=== PATIENT | female | born 1990 | race Caucasian/White ===

== ENCOUNTER → 2023-06-23 10:29 | Outpatient (BNVA) | payer BC, SELFPAY | PROVIDERS: Visit Provider Registered Nurse | DX: L40.9 Psoriasis, unspecified (principal); R73.03 Prediabetes; E53.8 Deficiency of other specified B group vitamins | CPT/HCPCS: 80053; 82607; 83036; 84443; 85025 ==

== ENCOUNTER → 2023-07-06 10:08 | Outpatient (BNVA) | payer BC, SELFPAY | PROVIDERS: Visit Provider Nurse Practitioner Family | DX: L40.9 Psoriasis, unspecified (principal); E53.8 Deficiency of other specified B group vitamins; R73.03 Prediabetes | CPT/HCPCS: 36415; 80053; 85025; 86480; 86705; 86706; 86709; 86803; 87340 ==

== ENCOUNTER → 2023-07-15 09:00 | Outpatient (BNVA) | payer BC, SELFPAY | PROVIDERS: Visit Provider Nurse Practitioner Women's Health | DX: Z12.4 Encounter for screening for malignant neoplasm of cervix (principal); N92.1 Excessive and frequent menstruation with irregular cycle | CPT/HCPCS: 84146; 87624 ==

== ENCOUNTER → 2023-08-05 08:20 | Outpatient (BNVA) | payer BC, SELFPAY | PROVIDERS: PCP Registered Nurse; Visit Provider Nurse Practitioner Women's Health | DX: N92.6 Irregular menstruation, unspecified (principal) | CPT/HCPCS: 76830 ==

== ENCOUNTER → 2023-08-18 07:52 | Outpatient (BNVA) | payer BC, SELFPAY | PROVIDERS: PCP Registered Nurse; Referring Provider Registered Nurse; Visit Provider Physician Assistant | DX: M67.431 Ganglion, right wrist (principal) | CPT/HCPCS: 73110 ==

== ENCOUNTER 2023-10-21 11:07 | Day surgery (SDC) | payer BC, SELFPAY ==
[2023-10-21] VITALS (9 sets, daily range): BP systolic 110–153; BP diastolic 66–95; PULSE 61–80; RESP 16–20; TEMP 36.1–36.6; O2SAT 96–100; BMI 35.7
[2023-10-21 11:44] LABS: OR HCG Qualitative Urine Negative (Negative)
--- NOTE | 2023-10-21 11:53 | W.PM.OPSFHP ---
Same Day Surgery H&P Indication for Procedure/HPI DATE OF PROCEDURE: October 21, 2023 CHIEF COMPLAINT/INDICATIONFOR SURGICAL PROCEDURE: Right volar wrist ganglion cyst PREOP DIAGNOSIS: Right wrist volar ganglion cyst PLANNED PROCEDURE: Operation Date: 10/21/23 12:55 Proposed Procedures p Volar wrist ganglion cyst excision(Right) - Germán Khan DO Medications/Allergies* Home Medications Medication Instructions Recorded Confirmed Type Saccharomyces boulardii 250 mg 250 mg PO BID 06/23/23 10/20/23 History capsule (Daily Probiotic (S. 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; one removed Depression Psoriasis Surgical History (Updated 07/15/23 @ 09:47 by Carmen Souza APN, VERONICA) Status post hysteroscopic polypectomy 2 different surgeries performed in [place] at [place]; polyps noted and benign History of kidney removal (~1989) duplicate kidney History of ureterostomy H/O tubal ligation (~07/2020) Family History (Updated 07/15/23 @ 09:24 by Elida Carr LPN) Alcohol dependence Father Diabetes mellitus, type 2 Father Congestive heart failure (CHF) Father Heart disease Father Hyperlipidemia Father Breast cancer Grandmother maternal Kidney failure Father Lung cancer Grandfather paternal Hypertension Mother Denies family history of Ovarian cancer Prostate cancer Uterine cancer Thyroid disease Stroke Social History Smoking and tobacco/nicotine status: never used tobacco/nicotine Pertinent Exam Findings alert, oriented x 3, operative site marked and procedure specific exam findings Please refer to detailed orthopedic examination on 08/18/2023 detailed below: Right wrist-negative Phalen's and negative Tinel's test. Patient has palpable tender nodule that is soft and mobile on the volar aspect of wrist. Exam findings suggestive of ganglion cyst. No signs of any abscess or infection noted. She has full range of motion in wrist with some mild pain with some range of motion. 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 Patient understands the ins and outs of procedure the risk benefits complication alternatives with surgery and through shared decision making lacks proceed with surgical intervention. All questions answered at this time. Coding Level of Care Code Acute Code for [facility]
[2023-10-21] MEDS: sodium chloride 0.9% 1,000 ML 30 ML IV (12:19)
[2023-10-21] MEDS: scopolamine 1.5 Patch 1 PATCH TRANSDERMA (12:20)
[2023-10-21] MEDS: ketorolac 30 mg/mL INJ IVP (12:20)
[2023-10-21] MEDS: acetaminophen 1,000 MG/100 ML PIGGYBACK 400 MG IV (12:28)
--- NOTE | 2023-10-21 12:33 | ANES.PREANE2 ---
Pre-Anesthetic Assessment Height/Weight: Height 1.65 m Weight 97.522 kg Temp Pulse Resp BP Pulse Ox O2 Del Method 97.9 F 70 16 128/84 97 Room Air 10/21/23 11:33 10/21/23 11:33 10/21/23 11:33 10/21/23 11:33 10/21/23 11:33 10/21/23 11:53 Preop Diagnosis: Right wrist volar ganglion cyst Operation Date: 10/21/23 12:55 Proposed Procedures p Volar wrist ganglion cyst excision(Right) - Germán Khan DO Familial anesthetic complications: None Was Beta Kyrie taken within 24 hours: N/A Was Clonidine taken within 24 hours: N/A Last intake: Intake Last Liquid Date 10/20/23 Last Liquid Time 21:00 Last Solid Date 10/20/23 Last Solid Time 19:00 Social No alcohol and No tobacco Exam alert, oriented x 3, clear to auscultation bilaterally and regular rate & rhythm Airway Mallampati: Class II Dentition: full Metabolic Morbid Obesity Anesthetic Plan ASA status: 2 Anesthesia: MAC Risk of > 500 ml blood loss (7ml/kg in children): No Medications/Allergies Home Medications Medication Instructions Recorded Confirmed Last Taken Type Saccharomyces boulardii 250 mg 250 mg PO BID 06/23/23 10/20/23 10/21/23 History capsule (Daily Probiotic (S. boulardii)) desoximetasone 0.05 % topical 1 applic topical BID PRN skin 06/23/23 10/20/23 10/17/23 Rx ointment irritation #60 grams ibuprofen 800 mg tablet 800 mg PO Q8H 5 days #15 tabs 07/27/23 10/20/23 09/29/23 Rx ustekinumab 45 mg/0.5 mL See Rx Instructions .Route .COMPLEX 10/20/23 10/20/23 09/17/23 History subcutaneous syringe (Stelara) hydrocodone 5 mg-acetaminophen 325 1 tab PO Q6H PRN pain 5 days #20 10/21/23 Unknown Rx mg tablet tabs ondansetron 4 mg disintegrating 4 mg PO Q8H PRN nausea and 10/21/23 Unknown Rx tablet vomiting 3 days #9 tabs Allergies Allergy/AdvReac Type Severity Reaction Status Date / Time tramadol Allergy Intermediate ADR-Halluci Verified 09/11/23 11:34 nating Current Medications Generic Name Dose Route Start Last Admin Trade Name Freq PRN Reason Stop Dose Admin Sodium Chloride 1,000 mls @ 30 mls/hr 10/21/23 11:30 10/21/23 12:19 Sodium Chloride 0.9% IV 10/22/23 11:29 30 mls/hr .Q24H URBANO Administration PFSH Anesthesia Medical History ADHD No pertinent past medical history neghx: htn,dm,thryoid,dvt/pe PCP: Chava Puente 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; one removed Depression Psoriasis Surgical History Status post hysteroscopic polypectomy 2 different surgeries performed in [place] at [place]; polyps noted and benign History of kidney removal (~1989) duplicate kidney History of ureterostomy H/O tubal ligation (~07/2020) Family History Grandmother Breast cancer maternal Grandfather Lung cancer paternal Father Diabetes mellitus, type 2 Congestive heart failure (CHF) Alcohol dependence Kidney failure Heart disease Hyperlipidemia Mother Hypertension Denies family history of Ovarian cancer Prostate cancer Uterine cancer Thyroid disease Stroke Social History Smoking and tobacco/nicotine status: never used tobacco/nicotine Female Reproductive History Date of last menstrual period: 09/26/23 Data Anesthesia Cardiac Studies: No Data to Display
[2023-10-21] MEDS: ceFAZolin 2,000 MG in sodium chloride 0.9% (plus) 50 ML 100 MG IV (12:40)
[2023-10-21] MEDS: lidocaine 2% INJ 20 mL INJECTION (13:08)
[2023-10-21] MEDS: ROPivacaine 0.5% SDV 30 mL 25 MG INJECTION (13:08)
--- NOTE | 2023-10-21 13:45 | P.BOP_ITS ---
Date of Procedure: [10/21/2023] Surgeon: Germán Khan DO Psychologist Industrial Organizational(s): None Procedure(s) performed: Right volar wrist ganglion cyst excision Findings of the procedure(s): Patient found to have right volar wrist ganglion cyst underwent excision without issues or complications patient volar splint taken packings able condition Estimated blood loss: 5 mL Specimen(s) removed: Right volar wrist ganglion cyst excised and sent for pathology Post-operative diagnosis: [Right volar wrist ganglion cyst]
--- NOTE | 2023-10-21 13:48 | P.OP_ITS ---
Operative Report Date of procedure: October 21, 2023 Surgeon: Germán Khan DO Procedure: Preoperative diagnosis: Right?volar?wrist ganglion?cyst Postoperative diagnosis: Same Procedure Right?volar?wrist ganglion?cyst?excision Specimens removed/disposition: Right?volar?wrist ganglion?cyst?excised and sent for pathology Surgeon: Germán Khan DO Estimated blood loss: 5mL Tourniquet time 25 minutes IV fluids: See anesthesia record Complications: None Findings: See operative report narrative Condition: stable Disposition: same day Brief History: Patient's been worked up in the outpatient setting and findings consistent with preoperative diagnosis.? Patient has a Right?volar?wrist ganglion?cyst.? Patient has attempted conservative treatment and this has become significantly painful.? ?We talked about treatment options as far as nonoperative and operative intervention.? At this point time patient like a more permanent solution in the lowest chance of recurrence and as result through shared decision making we agreed to proceed with a Right?volar?wrist ganglion?cyst?excision.? Patient understands risk benefits complication alternatives surgical nonsurgical treatment options.? Understanding risk of surgery patient agrees to proceed.? All questions answered.? Consent obtained in the office. Procedure: Patient seen evaluate in the preoperative holding area.? Consent was signed and reviewed with patient.? All questions were answered at that time.? Correct extremity was then marked.? Once seen evaluated by anesthesia patient was then brought back to the operative suite.? Patient was then placed in supine position all bony prominences well-padded patient was properly secured to the bed.? An armboard was then applied for the Right upper extremity.? A nonsterile tourn iquet was applied to the Right upper extremity arm.? Patient then underwent anesthesia per the anesthesia department.? Once appropriately anesthetized the Right upper extremity was then prepped and draped in standard orthopedic fashion.? Final timeout performed.? Patient received appropriate preoperative antibiotics. Under sterile aseptic technique I began with local anesthetic for my preplanned surgical site.? Then I utilized an Esmarch tourniquet to exsanguinate the Right upper extremity to 250 mmHg Patient had a large soft mobile ganglion?cyst?which a incision was then centered directly over the?cyst?over the?volar?aspect of the Right wrist, this was made in standard [place] fashion. sharp scalpel incision was made through skin.? I then switched to dissection scissors and spread longitudinally to identify cutaneous nerve branches as well as identifying protecting radial artery. These were protected throughout the case.? Just radial to the radial artery was the ganglion cyst adhered up against the bifurcation of the distal extent of the radial artery. I performed slow careful dissection utilizing loupe magnification to dissect the radial artery off of the ganglion cyst once this was performed my speech language pathologist assistant then protected the artery throughout the rest of the case while I dissected out the ganglion cyst. I then dissected circumferentially all the way to the base which was connected to the?volar?capsule.? This was then transected at the base with bipolar electrocautery.? I did have to excise some of the?volar?capsule that communicated with the?cyst?this had a broad connection and?cyst?stalk to the?volar?capsule. I utilized bipolar electrocautery to to seal off the?volar?capsule and prevent any further?cyst?recurrence.??Cyst?was then sent for pathology.? I then thoroughly irrigated the wound bed tourniquet was deflated.? Hemostasis was satisfactory with bipolar electrocautery.? I then closed the incision with stitch for skin.? Xeroform over the incisions 4 x 4's ABD soft roll and a?volar?splint was applied.? Patient was then awakened from anesthesia and taken back in stable condition. Disposition: Patient taken back in stable condition recovering well.? Patient will receive appropriate discharge instructions as well as pain medication postoperatively.? Patient placed in a?volar?splint.? We will follow-up with in the orthopedic office in 2 weeks.? Patient understands of any questions or concerns and contact the office.
[2023-10-21] MEDS: HYDROcodone-acetaminophen 5-325 mg Tablet 1 TAB PO (14:40)
--- NOTE | 2023-10-21 14:47 | SUR.PHASEII ---
ROM, SENSATION, AND GOOD CAP REFILL, FINGERS OF RIGHT HAND.
--- NOTE | 2023-10-21 16:00 | ANE.PACU2 ---
Inpatient post-anesthesia follow up: Airway intact: Yes Vital signs: Temperature 97.9 F Pulse Rate 62 Respiratory Rate 16 Blood Pressure 136/95 Pulse Oximetry 99 Oxygen Delivery Me thod Room Air Oxygen Flow Rate Fraction of Inspir ed Oxygen Hydration adequate: Yes Nausea and vomiting: No Pain level: 1 Mental status: Baseline
== END 2023-10-21 16:00 | disposition home or self-care (01) ==
PROVIDERS: Anesthesiology; PCP Registered Nurse; Visit Provider Student in an Organized Health Care Education/Training Program
PROC: (CPT 25111; principal; 2023-10-21 12:55)
DX: M67.431 Ganglion, right wrist (principal); F32.A Depression, unspecified; E66.01 Morbid (severe) obesity due to excess calories; Z68.35 Body mass index [BMI] 35.0-35.9, adult
CPT/HCPCS: 25111; 81025; 88304; J0131; J0690; J1100; J1885; J2250; J2405; J2704; J2795; J3010; J7030

== ENCOUNTER 2024-01-21 13:11 | Outpatient (CLI) | payer BC, SELFPAY ==
--- NOTE | 2024-01-21 14:30 | MR_ITS ---
WS: [id number] MRI PELVIS WITH AND WITHOUT CONTRAST. COMPARISON: Transvaginal pelvic ultrasound 08/05/2023 Multiplanar, multisequence imaging is performed with and without contrast. MultiHance 20 mL IV. Uterus is midline and measures 9.2 cm in length x 5.1 cm anterior posterior x 6.5 cm transversely. No fibroid or mass is identified. Endocervical canal is normal. Normal endometrium at 1.1 cm. No fibroi ds or abnormal masses identified. No bicornuate uterus or duplicated cervix. There are a few subendom etrial, tiny T2 bright lesions measuring 3 to 4 mm. Most likely due to subendometrial glands or devel oping adenomyosis. RIGHT ovary is identified in the RIGHT adnexa measuring 2.7 x 1.5 x 3.1 cm. There are small follicles present. Normal appearance of the fallopian tube and the round ligament. LEFT ovary is not identified and may have been surgically removed. Cervix is normal. The urinary bladder is well distended on this examination. No ureteral enlargement is identified. The ureteral orifices are not definitely identified on this exam. Delayed postcontrast imaging was perfo rmed in order to better evaluate contrast-filled ureters but this was unsuccessful. Symmetric appearance of the bones. No marrow edema. No ascites. MR/MR pelvis wo/w con [id number] IMPRESSION: 1. Normal appearance of the uterus. No anomalies are detected. 2. Normal RIGHT ovary. LEFT ovary is not identified and may have been surgical ly removed. 3. The distal ureters are not identified on this MRI of the pelvis. Delayed po st contrast imaging was attempted but the ureters did not distend with contrast . The ureters do not appear dilated and the bladder was normal. To better evalu ate the insertion sites of the ureters to the bladder CT abdomen and pelvis wit h IV contrast and delayed imaging can be obtained.
== END 2024-01-21 13:12 | disposition home or self-care (01) ==
LOC: RAD 13:11
PROVIDERS: PCP Registered Nurse; Visit Provider Obstetrics & Gynecology
DX: Q62.5 Duplication of ureter (principal)
CPT/HCPCS: 72197

== ENCOUNTER 2024-02-09 09:10 | Observation (INO) | payer BC, SELFPAY ==
--- NOTE | 2024-02-01 10:13 | P.ANESASSM_ITS ---
Pre-Anesthetic Assessment Height/Weight: Height 1.65 m Operation Date: 02/09/24 07:00 Proposed Procedures p Total Vaginal Hysterectomy 19162, N92.0(Not Applicable) - Wilberto Farnsworth MD Familial anesthetic complications: None Social No alcohol and No tobacco Vapes Exam alert, oriented x 3, clear to auscultation bilaterally and regular rate & rhythm Airway Mallampati: Class II Dentition: partials ( loose, but still hanging on ) Metabolic Morbid Obesity Neuropsych adhd Anesthetic Plan ASA status: 2 Anesthesia: General Risk of > 500 ml blood loss (7ml/kg in children): No Medications/Allergies Home Medications Medication Instructions Recorded Confirmed Last Taken Type Saccharomyces boulardii 250 mg 250 mg PO DAILY 06/23/23 02/01/24 02/01/24 History capsule (Daily Probiotic (S. boulardii)) desoximetasone 0.05 % topical 1 applic topical BID PRN skin 06/23/23 02/01/24 01/30/24 Rx ointment irritation #60 grams ibuprofen 800 mg tablet 800 mg PO Q8H 5 days #15 tabs 07/27/23 02/01/24 02/01/24 Rx ustekinumab 45 mg/0.5 mL See Rx Instructions .Route .COMPLEX 10/20/23 02/01/24 12/19/23 History subcutaneous syringe (Stelara) prednisone 20 mg tablet 20 mg PO BID 7 days #14 tabs 01/22/24 02/01/24 02/01/24 Rx clobetasol 0.05 % lotion 1 applic topical BID 02/01/24 02/01/24 01/31/24 History tretinoin 0.1 % topical cream 1 applic topical Q2D 02/01/24 02/01/24 02/01/24 History Allergies Allergy/AdvReac Type Severity Reaction Status Date / Time tramadol Allergy Intermediate ADR-Halluci Verified 02/01/24 09:30 sherif [facility] Anesthesia Medical History ADHD No pertinent past medical history neghx: htn,dm,thryoid,dvt/pe PCP: Chava Puente 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; one removed Depression Psoriasis Surgical History Status post hysteroscopic polypectomy 2 different surgeries performed in [place] at [place]; polyps noted and benign History of kidney removal (~1989) duplicate kidney History of ureterostomy H/O tubal ligation (~07/2020) Family History Grandmother Breast cancer maternal Grandfather Lung cancer paternal Father Diabetes mellitus, type 2 Congestive heart failure (CHF) Alcohol dependence Kidney failure Heart disease Hyperlipidemia Mother Hypertension Denies family history of Ovarian cancer Prostate cancer Uterine cancer Thyroid disease Stroke Social History Smoking and tobacco/nicotine status: never used tobacco/nicotine Female Reproductive History Date of last menstrual period: 02/01/24 Data Anesthesia Cardiac Studies: No Data to Display
[2024-02-09] VITALS (23 sets, daily range): BP systolic 98–158; BP diastolic 50–88; PULSE 66–97; RESP 14–20; TEMP 36.2–36.9; O2SAT 92–99; BMI 36.6
[2024-02-09 06:16] LABS: OR HCG Qualitative Urine Negative (Negative)
--- NOTE | 2024-02-09 06:24 | P.ANESUD_ITS ---
Pre-Anesthetic Update Pre-Anesthetic Assessment: Date of Surgery/Procedure: 02/09/24 Preop Carrol gnosis: abnormal uterine bleeding, Proposed Procedure: Operation Date: 02/09/24 07:00 Proposed Procedures p Total Vaginal Hysterectomy 42170, N92.0(Not Applicable) - Wilberto Farnsworth MD Any changes to Pre-Anesthetic Assessment?: No Last Intake: Intake Last Liquid Date 02/08/24 Last Liquid Time 21:00 Last Solid Date 02/08/24 Last Solid Time 19:00 Vitals: Temperature 97.3 F L 02/09/24 06:10 Temperature Source Temporal Artery S can 02/09/24 06:10 Pulse Rate 70 02/09/24 06:10 Respiratory Rate 18 02/09/24 06:10 Blood Pressure 134/82 02/09/24 06:10 Blood Pressure Elizabeth n 99 02/09/24 06:10 Pulse Oximetry 96 02/09/24 06:10 Oxygen Delivery Me thod Room Air 02/09/24 06:12 Exam: Pre-Anes Outpt Exam: alert, oriented x 3, clear to auscultation bilaterally and regular rate & rhythm Cardiac Studies: No Data to Display
[2024-02-09] MEDS: metroNIDAZOLE IV 500 MG/100 ML PREMIX 100 MG IV (06:38)
[2024-02-09] MEDS: sodium chloride 0.9% 500 ML IV (06:38)
[2024-02-09] MEDS: sodium chloride 0.9% 1,000 ML 30 ML IV (06:43)
[2024-02-09] MEDS: scopolamine 1.5 Patch 1 PATCH TRANSDERMA (06:46)
[2024-02-09 06:52] LABS: Basophils # 0.1 10^3/uL (0.0-0.1); Basophils % 0.8 %; Eosinophils # 0.2 10^3/uL (0.0-0.8); Eosinophils % 2.7 %; Hematocrit 37.2 % (36-47); Lymphocytes # 1.8 10^3/uL (0.8-4.8); Lymphocytes % 23.4 %; Mean Corpuscular HGB Conc 35.5 g/dL (30-55); Mean Corpuscular Hemoglobin 28.4 pg (27-33); Mean Platelet Volume 10.8 fL (7.4-10.4); Monocytes # 0.6 10^3/uL (0.2-0.9); Nucleated Red Blood Cells % 0 %; Platelet Count 268 10^3/cmm (157-399); Red Blood Count 4.65 10^6/uL (3.85-5.65); Red Cell Distribution Width 13.5 % (12.1-15.1); White Blood Count 7.87 10^3/uL (3.29-11.43)
--- NOTE | 2024-02-09 06:55 | W.PM.OPSUD ---
Surgery/Procedure H&P Update DATE OF PROCEDURE: February 09, 2024 DATE H&P PERFORMED: 02/01/24 H&P UPDATE INFORMATION: I have reviewed H&P completed within last 30 days, I have examined patient prior to procedure and No changes to prior documentation PREOP DIAGNOSIS: abnormal uterine bleeding, PLANNED PROCEDURE: Operation Date: 02/09/24 07:00 Proposed Procedures p Total Vaginal Hysterectomy 44752, N92.0(Not Applicable) - Wilberto Farnsworth MD
[2024-02-09 07:01] LABS: Bilirubin Urine Negative (Negative); Blood Urine Negative (Negative); Glucose Urine UA Negative (Normal); Ketones Urine Negative (Negative); Leukocyte Esterase Urine Negative (Negative); Nitrate Urine Negative (Negative); Protein Urine Negative (Negative); Specific Gravity, Urine 1.023 (1.005-1.030); Urine Appearance Clear (CLEAR); Urine Color Yellow (Yellow)
[2024-02-09 07:02] LABS: Alanine Aminotransferase 18 U/L (0-33); Albumin Level 4.3 g/dL (3.5-5.2); Alkaline Phosphatase 56 U/L (35-105); Aspartate Amino Transferase 17 U/L (0-32); Blood Urea Nitrogen 11 mg/dL (6-20); Calcium 8.9 mg/dL (8.5-10.5); Carbon Dioxide 22 mmol/L (22-29); Chloride 104 mmol/L (98-107); Creatinine Clr Calc Pharmacy 131.2471; Globulin 2.5 g/dL (1.3-4.6); Glomerular Filtration Rate 95.2 mL/min (90-130); Glucose 116 mg/dL (65-115); Osmolality Calculated 284 mOsm/kg (285-295); Sodium 137 mmol/L (136-145); Total Bilirubin 0.4 mg/dL (0.15-1.2); Total Protein 6.8 g/dL (6.6-8.7)
[2024-02-09] MEDS: ceFAZolin 2,000 mg SDV 2000 MG IVP (07:02)
[2024-02-09 07:03] LABS: Anion Gap 15.2 (5-19); Potassium 4.2 mmol/L (3.5-5.1)
[2024-02-09 07:07] LABS: Add Urine Microscopic? YES; Bacteria Urine 2+ /hpf; RBC Urine 0-2 /hpf (0-2); Squamous Epithelial Cell Urine 21-50 /hpf (0-5); WBC Urine 0-5 /hpf (0-5)
[2024-02-09] MEDS: lidocaine-epi 2% PF 1:200,000 20 mL SDV XX (09:15)
--- NOTE | 2024-02-09 09:32 | W.PM.BPON ---
Date of Procedure: 02/09/24 Surgeon: Wilberto Farnsworth MD Wood Machinist Apprentice(s): Procedure(s) performed: Total vaginal hysterectomy Findings of the procedure(s): Enlarged uterus Estimated blood loss: 475 Specimen(s) removed: Uterus Post-operative diagnosis: Status post total vaginal hysterectomy
--- NOTE | 2024-02-09 09:33 | PM.OP ---
Operative Report Date of procedure: February 09, 2024 Pre-op diagnosis: Abnormal uterine bleeding unresponsive to medical management Pelvic pain Post-op findings: Enlarged uterus Procedure done: Total vaginal hysterectomy Specimens removed/disposition: Uterus Surgeon: Wilberto Farnsworth MD Estimated blood loss (mL): 475 IV fluids (mL): 900 Urine output (mL): 200 Complications: Small bladder laceration Procedure: After informed consent and risks, benefits, indications and alternatives reviewed with the patient was taken to the operating room. The patient was placed in dorsal lithotomy position prepped, and draped in the usual sterile fashion. The pre-procedure timeout verifying the correct patient, procedure, site and side, could not requirements was performed and acknowledge by the OR team. A Rea catheter was placed. A Bookwalter vaginal retractor was placed into the vagina in usual manner visualize the cervix. Cervix was grasped with a single tooth tenaculum and circumferentially infiltrated with 2% lidocaine with epinephrine. Then cervix was circumferentially incised with bovie and the bladder was dissected off the pubovesical cervical fascia anteriorly with a sponge stick and Metzenbaum scissors. The anterior peritoneal reflection was dificult to identified due to redundant excess adipose tisssue and a small bladder alceration was noted. The laceratino was immediately repair with 3-0 Vicryl in layers. Then the anterior cul-de-sac was entered sharply with Metzenbaum scissors. The same procedure was performed posteriorly and a posterior colpotomy was made through the posterior cul-de-sac space without difficulty and the posterior blade of the Bookwalter vaginal retractor was advanced posteriorly into the cul-de-sac. At this time, the left and right uterosacral ligaments were isolated and ligated with 0 Vicryl. The LigaSure device was placed over the uterosacral ligaments on either side and was then used in a serial fashion up through the cardinal ligaments bilaterally cross-clamped, cut, and sealed with the LigaSure device. Finally, the uterine arteries were cross-clamped, cut, sealed and ligated with the LigaSure device. Hemostasis was assured. The broad ligaments were then serially clamped, sealed and cut with the LigaSure device on both sides. Excellent hemostasis was visualized. Both cornua were clamped, sealed and cut with the LigaSure device. Then the pedicles were then suture ligated with excellent hemostasis. The uterus was excised and submitted for pathologic evaluation. No other abnormalities were noted in the pelvic cavity. The peritoneum was then closed in a pursestring fashion with 0 Vicryl suture. Bluedigo was given IV. The vaginal cuff angles were closed with [id number] #0 Vicryl suture on both sides and transfixed with the ipsilateral cardinal and uterosacral ligaments. The remainder of the vaginal cuff was closed with #0 Vicryl in a running locked fashion. At this time, instruments were removed from the vagina at hemostasis assured. Then the Rea catheter was removed and cystoscope was inserted. The bladder was filled with sterile water. Complete evaluation of the bladder mucosa was performed noting laceration repair with minimal bleeding of the mucosa or muscular layers. Both ureteral orifices were identified. Prompt excretion of urine from both ureteral orifices was noted. Cystoscope was withdrawn. Rea catheter was then placed yielding blue urine. A vaginal packing was placed and the patient was taken out of dorsal lithotomy position and awakened from the general anesthesia. The patient tolerated the procedure well and was taken to the PACU recovery room in a stable condition. Sponge, lap, needle and instruments counts were correct x3.
[2024-02-09] MEDS: meperidine 50 mg/mL INJ 12.5 MG IVP (09:45)
[2024-02-09] MEDS: HYDROmorphone 1 mg/mL INJ 1 mL 0.5 MG IVP ×3 (10:00→19:54)
[2024-02-09] MEDS: HYDROmorphone 1 mg/mL INJ 1 mL IVP (10:20)
[2024-02-09] MEDS: ketorolac 30 mg/mL INJ IVP ×3 (10:20→17:59)
--- NOTE | 2024-02-09 10:33 | SUR.OPER ---
1015 obtained verbal order for 1mg of hydromorphone IVP and 30mg of ketorolac IVP from Vianey FREY for pain control
--- NOTE | 2024-02-09 10:50 | ANE.PACU2 ---
Inpatient post-anesthesia follow up: Airway intact: Yes Vital signs: Temperature 98.0 F Pulse Rate 84 Respiratory Rate 17 Blood Pressure 100/63 Pulse Oximetry 95 Oxygen Delivery Me thod Room Air Oxygen Flow Rate 6 Fraction of Inspir ed Oxygen Hydration adequate: Yes Nausea and vomiting: No Pain level: 1 Mental status: Baseline
[2024-02-09] MEDS: ondansetron 2 mg/ML SDV 2 mL 4 MG IVP (12:16)
[2024-02-09] MEDS: dextrose 5%-lactated ringers 1,000 ML 125 ML IV ×2 (13:09→19:54)
[2024-02-09] MEDS: HYDROcodone-acetaminophen 5-325 mg Tablet PO (14:33)
[2024-02-09] MEDS: acetaminophen 325 mg Tablet 650 MG PO (16:34)
[2024-02-09] MEDS: predniSONE 20 mg Tablet PO (17:37)
[2024-02-09] MEDS: docusate sodium 100 mg Capsule PO (17:37)
--- NOTE | 2024-02-09 18:33 | PC.NURSE ---
Call from Dr. Farnsworth: Dr. Farnsworth called with orders to remove vaginal packing 02/10/2024 at 0500 Thomason catheter to stay and pt is to be discharged with thomason. Information given to charge nurse BRANDAN Solorzano for shift report. Information will be given to BRANDAN Padgett during night shift supervisor hand-off/report.
[2024-02-10 03:00] VITALS: BP 111/68; PULSE 79; RESP 20; TEMP 36.8; O2SAT 94
[2024-02-10 04:10] VITALS: RESP 18
[2024-02-10] MEDS: HYDROmorphone 1 mg/mL INJ 1 mL 0.5 MG IVP (04:10)
[2024-02-10] MEDS: dextrose 5%-lactated ringers 1,000 ML 125 ML IV (04:10)
--- NOTE | 2024-02-10 05:07 | PC.NURSE ---
Vaginal packing removed per Dr. Farnsworth's order.
[2024-02-10 06:07] LABS: Hematocrit 31.7 % (36-47); Mean Corpuscular HGB Conc 34.4 g/dL (30-55); Mean Corpuscular Hemoglobin 29.2 pg (27-33); Mean Platelet Volume 11.3 fL (7.4-10.4); Platelet Count 268 10^3/cmm (157-399); Red Blood Count 3.73 10^6/uL (3.85-5.65); Red Cell Distribution Width 13.7 % (12.1-15.1); White Blood Count 15.73 10^3/uL (3.29-11.43)
[2024-02-10 07:00] VITALS: BP 105/65; PULSE 70; RESP 17; O2SAT 96
--- NOTE | 2024-02-10 08:03 | PM.OBGYDC ---
Discharge Providers HARNESS MAKER Date of Admission: 02/09/24 09:10 Date of Discharge: 02/10/24 Attending Provider at Admission: Wilberto Farnsworth MD Attending Provider at Discharge: Wilberto Farnsworth MD Primary HARNESS MAKER: Wilberto Farnsworth MD Primary Care Provider: VARGAS Goodrich Reason for Visit Reason for Visit: N92.0 Hospital Course Hospital Course Mrs. Leigh 33-year-old female G3, P2 with a history of abnormal uterine bleeding unresponsive to medical management admitted for planned total vaginal hysterectomy. The procedure was performed complicated by a small bladder laceration. Overnight observation was uneventful. Tolerating diet well. Ambulating without difficulty. Adequate urine output. She was counseled regarding pelvic rest for 6 weeks (no sex, no tampons, no vaginal douches). Return to the emergency room if any fever, increased bleeding or pain. Physical Exam Narrative: GA: Alert and oriented ?3. HEENT: WNL. Heart: Regular rate and rhythm. Lungs: Clear to auscultation bilaterally. Abdomen: Bowel sounds present, nontender. VEGETABLE PICKER: spotting bleeding. Extremities: No edema, no cyanosis, no calves pain. Urinary Catheter Management: Rea: Cath Placed During This Visit: yes Urinary Catheter Date of Insertion: 02/09/24 Urinary Catheter Time of Insertion: 07:32 History History History 3 Term 2 0 Miscarriages/Ectopic 1 Living Children 2 Discharge Data Studies Completed and Pending Pending at discharge Category Date Time Status Pathology: Surgical [PTH] Routine Pth 02/09/24 09:42 Received Laboratory Results WBC 15.73 10^3/uL (3.29-11.43) H 02/10/24 05:34 RBC 3.73 10^6/uL (3.85-5.65) L 02/10/24 05:34 Hgb 10.90 g/dL (11.27-16.99) L 02/10/24 05:34 Hct 31.7 % (36-47) L 02/10/24 05:34 MCV 85.0 fl (85-98) D 02/10/24 05:34 MCH 29.2 pg (27-33) 02/10/24 05:34 MCHC 34.4 g/dL (30-55) 02/10/24 05:34 RDW 13.7 % (12.1-15.1) 02/10/24 05:34 Plt Count 268 10^3/cmm (157-399) 02/10/24 05:34 MPV 11.3 fL (7.4-10.4) H 02/10/24 05:34 Neut % (Auto) 66.0 % 02/09/24 06:20 Lymph % (Auto) 23.4 % 02/09/24 06:20 [place] % (Auto) 7.0 % 02/09/24 06:20 Eos % (Auto) 2.7 % 02/09/24 06:20 Baso % (Auto) 0.8 % 02/09/24 06:20 Neut # (Auto) 5.20 10^3/uL (1.8-7.7) 02/09/24 06:20 Lymph # (Auto) 1.8 10^3/uL (0.8-4.8) 02/09/24 06:20 [place] # (Auto) 0.6 10^3/uL (0.2-0.9) 02/09/24 06:20 Eos # (Auto) 0.2 10^3/uL (0.0-0.8) 02/09/24 06:20 Baso # (Auto) 0.1 10^3/uL (0.0-0.1) 02/09/24 06:20 Nucleated RBC % (auto) 0 % 02/09/24 06:20 Nucleated RBCs # 0.0 /100WBC 02/09/24 06:20 Sodium 137 mmol/L (136-145) 02/09/24 06:20 Potassium 4.2 mmol/L (3.5-5.1) 02/09/24 06:20 Chloride 104 mmol/L (98-107) 02/09/24 06:20 Carbon Dioxide 22 mmol/L (22-29) 02/09/24 06:20 Anion Gap 15.2 (5-19) 02/09/24 06:20 BUN 11 mg/dL (6-20) 02/09/24 06:20 Creatinine 0.7 mg/dL (0.5-0.9) 02/09/24 06:20 GFR Calculation 95.2 mL/min (90-130) 02/09/24 06:20 Glucose 116 mg/dL (65-115) H 02/09/24 06:20 Calculated Osmolality 284 mOsm/kg (285-295) L 02/09/24 06:20 Calcium 8.9 mg/dL (8.5-10.5) 02/09/24 06:20 Total Bilirubin 0.4 mg/dL (0.15-1.2) 02/09/24 06:20 AST 17 U/L (0-32) 02/09/24 06:20 ALT 18 U/L (0-33) 02/09/24 06:20 Alkaline Phosphatase 56 U/L (35-105) 02/09/24 06:20 Total Protein 6.8 g/dL (6.6-8.7) 02/09/24 06:20 Albumin 4.3 g/dL (3.5-5.2) 02/09/24 06:20 Globulin 2.5 g/dL (1.3-4.6) 02/09/24 06:20 Urine Color Yellow (Yellow) 02/09/24 06:20 Urine Appearance Clear (CLEAR) 02/09/24 06:20 Urine pH 6.0 (5-7) 02/09/24 06:20 Ur Specific [place] 1.023 (1.005-1.030) 02/09/24 06:20 Urine Protein Negative (Negative) 02/09/24 06:20 Urine Glucose (UA) Negative (Normal) 02/09/24 06:20 Urine Ketones Negative (Negative) 02/09/24 06:20 Urine Blood Negative (Negative) 02/09/24 06:20 Urine Nitrate Negative (Negative) 02/09/24 06:20 Urine Bilirubin Negative (Negative) 02/09/24 06:20 Urine Urobilinogen 1.0 mg/dL (Negative) 02/09/24 06:20 Ur Leukocyte Esterase Negative (Negative) 02/09/24 06:20 Urine RBC 0-2 /hpf (0-2) 02/09/24 06:20 Urine WBC 0-5 /hpf (0-5) 02/09/24 06:20 Ur Squamous Epith Cells 21-50 /hpf (0-5) 02/09/24 06:20 Amorphous Sediment Not Reportable 02/09/24 06:20 Urine Bacteria 2+ /hpf (NONE) H 02/09/24 06:20 Hyaline Casts 0.40 /lpf 02/09/24 06:20 Urine HCG, Qual Negative (Negative) 02/09/24 05:58 Blood Type Cancelled 02/09/24 06:20 Rho(D) Type Cancelled 02/09/24 06:20 Antibody Screen Cancelled 02/09/24 06:20 Vitals Last Vital Signs Temp 98.2 F 02/10/24 03:00 Pulse 70 02/10/24 07:00 Resp 17 02/10/24 07:00 BP 105/65 02/10/24 07:00 Pulse Ox 96 02/10/24 07:00 O2 Del Method Room Air 02/10/24 07:00 O2 Flow Rate 6 02/09/24 09:50 Results Labs OB ([facility]): Hct 31.7 % (36-47) L 02/10/24 Hgb 10.90 g/dL (11.27-16.99) L 02/10/24 Plt Count 268 10^3/cmm (157-399) 02/10/24 Hep Bs Antigen Non-reactive (Nonreactive) 07/06/23 Hep B Core Total Ab Non-reactive (Nonreactive) 07/06/23 Hep Bs Antibody 5.6 (11.5-1000) L 07/06/23 Hepatitis C Antibody Non-reactive (Nonreactive) 07/06/23 TSH 2.39 uIU/mL (0.27-4.20) 06/23/23 Hemoglobin A1c 5.2 % (4.0-6.0) 06/23/23 Pap Smear Interpret See note 07/15/23 Prolactin 6.55 ng/mL (4.8-23.3) 07/15/23 Discharge Plan Discharge Patient Disposition: Home Condition: Stable Prescriptions: New hydrocodone-acetaminophen 5-325 mg tablet 1 tab PO Q4H PRN (Reason: pain) Qty: 30 0RF docusate sodium [Colace] 100 mg capsule 100 mg PO BID Qty: 60 0RF ibuprofen 800 mg tablet 800 mg PO TID PRN (Reason: pain) Qty: 60 0RF acetaminophen 325 mg capsule 325 mg PO Q4H PRN (Reason: fever or pain) Qty: 60 0RF ferrous sulfate [Iron (ferrous sulfate)] 325 mg (65 mg iron) tablet 325 mg PO BID Qty: 60 0RF nitrofurantoin macrocrystal 100 mg capsule 100 mg PO BID 7 Days Qty: 14 0RF Rx Instructions: must administer with a meal/food Continued Saccharomyces boulardii [Daily Probiotic (S. boulardii)] 250 mg capsule 250 mg PO DAILY desoximetasone 0.05 % ointment 1 applic topical BID PRN (Reason: skin irritation) Qty: 60 0RF ibuprofen 800 mg tablet 800 mg PO Q8H 5 Days Qty: 15 0RF prednisone 20 mg tablet 20 mg PO BID 7 Days Qty: 14 0RF Rx Instructions: will be done thursdayfebruary 02 tretinoin 0.1 % Cream 1 applic TOPICAL Q2D clobetasol 0.05 % Lotion 1 applic TOPICAL BID Stelara 45 mg/0.5 mL syringe See Rx Instructions .ROUTE .COMPLEX Rx Instructions: mg subcutaneously every 12 weeks Discharge Orders: Discharge Order (Routine); Ordered 02/10/24 Ordered By: Wilberto Farnsworth Referrals: Wilberto Farnsworth MD [Physician] - 02/24/24 2:00 pm (APPOINTMENT AT 14:45 AND 05-26-24 AT 13:45) Discharge Diet: Usual diet Discharge Activity: Limit activity as instructed Patient Instructions: Acute Wound Care (DC), Vaginal Hysterectomy (GEN), Opioid Safety, Post Anesthesia Care Activity Restrictions/Additional Instructions: 1. Please call [facility] on next working day to make your [post-operative] appointment in [2] weeks. 2. Please stay home until you come back to the clinic on first post-hospatilization check up. 3. Please follow instructions on your medications CAREFULLY. 4. If you have abdominal incision, do not cover it unless dressing is necessary because of drainage. OK to shower, but avoid bath. Leave steri-strips until they fall off. If they are still on one week after surgery, you may remove them. 5. If you had vaginal surgery or vaginal repair, Dr. Farnsworth may instruct you to take SITZ bath. 6. Yellow, blood tinged odorous vaginal discharge is usually normal after hysterectomy or vaginal surgeries. 7. No SEXUAL INTERCOURSE, tampons, or douches until you are completely released from the post-operative care. 8. Avoid constipation by eating right and maybe using some Metamucil or Milk of Magnesia. 9. All prescription refills are given during the working hours. Please do no wait till it runs out. Call the clinic at [phone] before your medication runs out. The clinic will get in touch with your doctor to prescribe medications if necessary. 10. Please remain within 40 mile radius from our hospital because emergencies do happen now and then during the post-operative period. 11. If you have stairs at home, take one step at a time slowly and minimize the number of trips. It helps to stay in one floor for the next few days. No lifting except what you can lift by one hand until you are released from the post-operative care. 12. Driving is discouraged until you are well healed. It may be 3-4 weeks before you feel strong enough to drive. You should be able to turn and look through the rear window without pain and you should be able to push the brake pedal very hard without pain before you drive. No fast rules, but SAFETY should be your primary concern. DO NOT drive if you are on sedating medications such as narcotics. 13. Call the clinic (during working hours) to make urgent appointment or go to the Emergency room, if any of the following occurs: i. Vaginal bleeding becomes heavy, more than a period. ii. Incision becomes red and sore, or drains pus. iii. Your TEMPERATURE is over 100.4F or you have chill. iv. IV site becomes red and swollen (a little ``knot?? is usually OK) v. Persistent nausea and vomiting vi. Persistent constipation or diarrhea vii. Rash or allergic reaction to medications. Discharge Attestations HARNESS MAKER Time Spent in Discharge Care*: greater than 30 min Coding Level of Care Code Acute Code for Chg Su
[2024-02-10] MEDS: HYDROcodone-acetaminophen 5-325 mg Tablet PO (09:03)
[2024-02-10] MEDS: docusate sodium 100 mg Capsule PO (09:03)
[2024-02-10] MEDS: predniSONE 20 mg Tablet PO (09:03)
[2024-02-10 11:00] VITALS: BP 126/75; PULSE 79; RESP 16; TEMP 36.7; O2SAT 95
--- NOTE | 2024-02-10 11:17 | PC.NURSE ---
Discharge Note Patient discharged to home via private vehicle accompanied by . Discharge instructions reviewed with patient and/or automobile sales representative. Mobile pharmacy medications and/or prescriptions provided. Belongings/home medications returned.
[2024-02-10 12:20] VITALS: BP 126/75; PULSE 79; RESP 16; TEMP 36.7; O2SAT 95
== END 2024-02-10 12:26 | disposition home or self-care (01) ==
LOC: MEDSURG 09:37
PROVIDERS: Admitting Provider Obstetrics & Gynecology; PCP Registered Nurse; Visit Provider Obstetrics & Gynecology
PROC: (CPT 58260; principal; 2024-02-09 07:00)
DX: N93.9 Abnormal uterine and vaginal bleeding, unspecified (principal); N72 Inflammatory disease of cervix uteri; E66.01 Morbid (severe) obesity due to excess calories; Z68.39 Body mass index [BMI] 39.0-39.9, adult
CPT/HCPCS: 58260; 36415; 80053; 81001; 81025; 85025; 85027; 88307; G0378; J0330; J0690; J1100; J1171; J1200; J1885; J2175; J2250; J2405; J2704; J2710; J3010; J3490; J7030; J7040; J7121; J7512

== ENCOUNTER 2024-03-05 06:02 | Emergency (ER) | payer BC, SELFPAY ==
--- NOTE | 2024-03-05 06:16 | ED_ITS ---
HPI - Abdominal Pain 2 General: Chief Complaint: Abdominal Pain Stated Complaint: Rt sided abd pain, abd sx 2 weeks ago Time Seen by Provider: 03/05/24 06:10 History of Present Illness: 33-year-old female presents to the [facility] ency room complaining of abdominal pain off and on for the last couple of weeks. No vomiting or diarrhea. Was seen previously and treated for a bladder infection. Still having symptoms. No vomiting or diarrhea no hematuria. No history of renal stones. Patient previously had a partial nephrectomy hysterectomy a prior to that a tubal ligation. Associated Symptoms: Denies chills, dysuria and fever(s) Related Data Home Medications Medication Instructions Recorded Confirmed Saccharomyces boulardii 250 mg 250 mg PO DAILY 06/23/23 02/17/24 capsule (Daily Probiotic (S. boulardii)) ustekinumab 45 mg/0.5 mL See Rx Instructions .Route .COMPLEX 10/20/23 02/17/24 subcutaneous syringe (Stelara) clobetasol 0.05 % lotion 1 applic topical BID 02/01/24 02/17/24 tretinoin 0.1 % topical cream 1 applic topical Q2D 02/01/24 02/17/24 Previous Rx's Medication Instructions Recorded desoximetasone 0.05 % topical 1 applic topical BID PRN skin 06/23/23 ointment irritation #60 grams ibuprofen 800 mg tablet 800 mg PO Q8H 5 days #15 tabs 07/27/23 acetaminophen 325 mg capsule 325 mg PO Q4H PRN fever or pain 02/10/24 #60 caps docusate sodium 100 mg capsule 100 mg PO BID #60 caps 02/10/24 (Colace) ferrous sulfate 325 mg (65 mg 325 mg PO BID #60 tabs 02/10/24 iron) tablet (Iron (ferrous sulfate)) hydrocodone 5 mg-acetaminophen 325 1 tab PO Q4H PRN pain #30 tabs 02/10/24 mg tablet ibuprofen 800 mg tablet 800 mg PO TID PRN pain #60 tabs 02/10/24 ondansetron HCl 4 mg tablet 4 mg PO Q6H PRN nausea and 02/18/24 vomiting #20 tabs acetaminophen 300 mg-codeine 15 mg 1 tab PO Q6H PRN pain #30 tabs 02/26/24 tablet cefdinir 300 mg capsule 300 mg PO BID 10 days #20 caps 03/05/24 Allergies Allergy/AdvReac Type Severity Reaction Status Date / Time tramadol Allergy Intermediate ADR-Halluci Verified 03/05/24 06:23 sherif Review of Systems 2 Const: Denies: fever(s) or chills Card: Denies: chest pain Resp: Denies: dyspnea GI: Reports: abdominal pain : Denies: dysuria, urinary frequency or urinary urgency Musc: Denies: neck pain or back pain Skin/Breast: Denies: rash PFSH ED 2 PFSH: Medical History ADHD No pertinent past medical history neghx: htn,dm,thryoid,dvt/pe PCP: Chava Puente 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; one removed Depression Psoriasis Surgical History Status post hysteroscopic polypectomy 2 different surgeries performed in [place] at [place]; polyps noted and benign History of kidney removal (~1989) duplicate kidney History of ureterostomy H/O tubal ligation (~07/2020) Family History Grandmother Breast cancer maternal Grandfather Lung cancer paternal Father Diabetes mellitus, type 2 Congestive heart failure (CHF) Alcohol dependence Kidney failure Heart disease Hyperlipidemia Mother Hypertension Denies family history of Ovarian cancer Prostate cancer Uterine cancer Thyroid disease Stroke Social History Smoking and tobacco/nicotine status: never used tobacco/nicotine Physical Exam 2 Const: COMMON NORMALS: no acute distress GENERAL APPEARANCE: cooperative and comfortable ORIENTATION/CONSCIOUSNESS: Yes awake, Yes oriented to person, Yes oriented to place and Yes oriented to time HENMT: COMMON NORMALS: normocephalic, atraumatic and hearing grossly normal bilaterally HEAD & SCALP: normocephalic and atraumatic Resp: COMMON NORMALS: normal respiratory effort, No retractions, No use of accessory muscles and clear to auscultation bilaterally AUSCULTATION: clear to auscultation bilaterally Cardio: COMMON NORMALS: regular rate, regular rhythm and No murmurs present (Cardio) RATE: regular rate RHYTHM: regular rhythm GI: COMMON NORMALS: Soft to palpation and No hepatosplenomegaly present A USCULTATION: Yes normoactive bowel sounds PALPATION: Yes Soft to palpation, No Tenderness to palpation present (GI), No Guarding due to palpation present (GI) and Yes No hepatosplenomegaly present : COMMON NORMALS: Yes no CVA tenderness BLADDER/KIDNEY EXAM: Yes no CVA tenderness Back/Pelvis: COMMON NORMALS: no CVA tenderness Extremity: COMMON NORMALS: normal to inspection, capillary refill normal, no clubbing, cyanosis or edema, no calf tenderness and no pedal edema Neuro: SENSORIUM/ORIENTATION: Yes oriented to person, Yes oriented to place and Yes oriented to time Skin: COMMON NORMALS: no rashes or lesions noted GENERAL SKIN EXAM: no rashes or lesions noted Course 2 Vital Signs: Vital signs: Vital Signs Temperature 98.0 F 03/05/24 06:18 Pulse Rate 78 03/05/24 09:25 Respiratory Rate 16 03/05/24 06:18 Blood Pressure 127/82 03/05/24 09:25 Pulse Oximetry 97 03/05/24 09:25 Oxygen Delivery Me thod Room Air 03/05/24 06:18 MDM - Abdominal Pain Medical Decision Making Cystitis no acute findings on the CT. Will discharge patient home started on cefdinir she was previously on Macrobid and then Cipro. Will culture this urine. Return if she has uncontrolled pain or fever. Medical Records I reviewed the patient's medical records. Lab Data I reviewed the patient's lab results. 03/05/24 06:33 03/05/24 06:33 Labs/Radiology: Radiology Impressions Abdomen/Pelvis CT 03/05/24 07:30 IMPRESSION: 1. Trace free fluid within the pelvis. This may be physiologic. 2. There are air-fluid levels involving nondilated loops of small bowel. This is a nonspecific finding but can be seen with an ileus/enteritis. 3. Mild splenomegaly. Laboratory Results WBC 7.50 10^3/uL (3.29-11.43) 03/05/24 06:33 RBC 4.72 10^6/uL (3.85-5.65) 03/05/24 06:33 Hgb 13.20 g/dL (11.27-16.99) 03/05/24 06:33 Hct 38.6 % (36-47) 03/05/24 06:33 MCV 81.8 fl (85-98) L 03/05/24 06:33 MCH 28.0 pg (27-33) 03/05/24 06:33 MCHC 34.2 g/dL (30-55) 03/05/24 06:33 RDW 13.4 % (12.1-15.1) 03/05/24 06:33 Plt Count 335 10^3/cmm (157-399) 03/05/24 06:33 MPV 10.5 fL (7.4-10.4) H 03/05/24 06:33 Neut % (Auto) 65.3 % 03/05/24 06:33 Lymph % (Auto) 23.1 % 03/05/24 06:33 [place] % (Auto) 6.8 % 03/05/24 06:33 Eos % (Auto) 3.7 % 03/05/24 06:33 Baso % (Auto) 0.8 % 03/05/24 06:33 Neut # (Auto) 4.90 10^3/uL (1.8-7.7) 03/05/24 06:33 Lymph # (Auto) 1.7 10^3/uL (0.8-4.8) 03/05/24 06:33 [place] # (Auto) 0.5 10^3/uL (0.2-0.9) 03/05/24 06:33 Eos # (Auto) 0.3 10^3/uL (0.0-0.8) 03/05/24 06:33 Baso # (Auto) 0.1 10^3/uL (0.0-0.1) 03/05/24 06:33 Nucleated RBC % (auto) 0 % 03/05/24 06:33 Nucleated RBCs # 0.0 /100WBC 03/05/24 06:33 Sodium 136 mmol/L (136-145) 03/05/24 06:33 Potassium 4.0 mmol/L (3.5-5.1) 03/05/24 06:33 Chloride 104 mmol/L (98-107) 03/05/24 06:33 Carbon Dioxide 21 mmol/L (22-29) L 03/05/24 06:33 Anion Gap 15.0 (5-19) 03/05/24 06:33 BUN 10 mg/dL (6-20) 03/05/24 06:33 Creatinine 0.8 mg/dL (0.5-0.9) 03/05/24 06:33 GFR Calculation 81.6 mL/min (90-130) L 03/05/24 06:33 Glucose 145 mg/dL (65-115) H 03/05/24 06:33 Calculated Osmolality 284 mOsm/kg (285-295) L 03/05/24 06:33 Calcium 9.0 mg/dL (8.5-10.5) 03/05/24 06:33 Total Bilirubin 0.4 mg/dL (0.15-1.2) 03/05/24 06:33 AST 15 U/L (0-32) 03/05/24 06:33 ALT 19 U/L (0-33) 03/05/24 06:33 Alkaline Phosphatase 71 U/L (35-105) 03/05/24 06:33 Total Protein 7.1 g/dL (6.6-8.7) 03/05/24 06:33 Albumin 4.5 g/dL (3.5-5.2) 03/05/24 06:33 Globulin 2.6 g/dL (1.3-4.6) 03/05/24 06:33 Lipase 30 U/L (13-60) 03/05/24 06:33 Urine Color Yellow (Yellow) 03/05/24 06:15 Urine Appearance Clear (CLEAR) 03/05/24 06:15 Urine pH 5.5 (5-7) 03/05/24 06:15 Ur Specific [place] 1.022 (1.005-1.030) 03/05/24 06:15 Urine Protein Negative (Negative) 03/05/24 06:15 Urine Glucose (UA) Trace (Normal) H 03/05/24 06:15 Urine Ketones Negative (Negative) 03/05/24 06:15 Urine Blood Negative (Negative) 03/05/24 06:15 Urine Nitrate Negative (Negative) 03/05/24 06:15 Urine Bilirubin Negative (Negative) 03/05/24 06:15 Urine Urobilinogen 0.2 mg/dL (Negative) 03/05/24 06:15 Ur Leukocyte Esterase 2+ (Negative) A 03/05/24 06:15 Urine RBC 0-2 /hpf (0-2) 03/05/24 06:15 Urine WBC >100 /hpf (0-5) H 03/05/24 06:15 Ur Squamous Epith Cells 6-10 /hpf (0-5) 03/05/24 06:15 Amorphous Sediment Not Reportable 03/05/24 06:15 Urine Bacteria 2+ /hpf (NONE) H 03/05/24 06:15 Hyaline Casts 0.81 /lpf 03/05/24 06:15 All radiology interpretation(s) finalized by discharge Discharge Plan Discharge Patient Disposition: Home Clinical Impression: Cystitis Condition: Stable Prescriptions: New cefdinir 300 mg capsule 300 mg PO BID 10 Days Qty: 20 0RF No Action Saccharomyces boulardii [Daily Probiotic (S. boulardii)] 250 mg capsule 250 mg PO DAILY desoximetasone 0.05 % ointment 1 applic topical BID PRN (Reason: skin irritation) Qty: 60 0RF ibuprofen 800 mg tablet 800 mg PO Q8H 5 Days Qty: 15 0RF ondansetron HCl 4 mg tablet 4 mg PO Q6H PRN (Reason: nausea and vomiting) Qty: 20 0RF acetaminophen-codeine 300-15 mg tablet 1 tab PO Q6H PRN (Reason: pain) Qty: 30 0RF tretinoin 0.1 % Cream 1 applic TOPICAL Q2D clobetasol 0.05 % Lotion 1 applic TOPICAL BID ibuprofen 800 mg tablet 800 mg PO TID PRN (Reason: pain) Qty: 60 0RF hydrocodone-acetaminophen 5-325 mg tablet 1 tab PO Q4H PRN (Reason: pain) Qty: 30 0RF ferrous sulfate [Iron (ferrous sulfate)] 325 mg (65 mg iron) tablet 325 mg PO BID Qty: 60 0RF docusate sodium [Colace] 100 mg capsule 100 mg PO BID Qty: 60 0RF acetaminophen 325 mg capsule 325 mg PO Q4H PRN (Reason: fever or pain) Qty: 60 0RF Stelara 45 mg/0.5 mL syringe See Rx Instructions .ROUTE .COMPLEX Rx Instructions: mg subcutaneously every 12 weeks Discharge Orders: Discharge ED (Routine); Ordered 03/05/24 Ordered By: Wilian Casillas Referrals: Zeinab Puente FNP [Primary Care Provider] - Discharge Diet: Usual diet Discharge Activity: Resume usual activity Patient Instructions: Urinary Tract Infection in Women (ED), Opioid Safety, Pain Management Activity Restrictions/Additional Instructions: Thank you for choosing [facility] for your healthcare needs today. It is very important that you follow up as instructed or that you return to the Emergency Department should you have concerns or if your condition changes or worsens in any way. You are seen in the emergency room with complaints of abdominal pain. The CT did not show any acute abnormalities other evaluation showed a acute bladder infection. Urine culture will be done will start on cefdinir 300 mg 1 twice daily for 10 days medication may need to be adjusted once culture returns. Increase fluid intake return if you have worsening problems. 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
[2024-03-05 06:18] VITALS: BP 144/84; PULSE 85; RESP 16; TEMP 36.7; O2SAT 98; BMI 36.6
[2024-03-05 06:43] LABS: Basophils # 0.1 10^3/uL (0.0-0.1); Basophils % 0.8 %; Eosinophils # 0.3 10^3/uL (0.0-0.8); Eosinophils % 3.7 %; Hematocrit 38.6 % (36-47); Lymphocytes # 1.7 10^3/uL (0.8-4.8); Lymphocytes % 23.1 %; Mean Corpuscular HGB Conc 34.2 g/dL (30-55); Mean Corpuscular Volume 81.8 fl (85-98); Mean Platelet Volume 10.5 fL (7.4-10.4); Monocytes # 0.5 10^3/uL (0.2-0.9); Monocytes % 6.8 %; Neutrophils % 65.3 %; Nucleated Red Blood Cells % 0 %; Platelet Count 335 10^3/cmm (157-399); Red Blood Count 4.72 10^6/uL (3.85-5.65); Red Cell Distribution Width 13.4 % (12.1-15.1)
[2024-03-05 07:10] LABS: Alanine Aminotransferase 19 U/L (0-33); Albumin Level 4.5 g/dL (3.5-5.2); Alkaline Phosphatase 71 U/L (35-105); Aspartate Amino Transferase 15 U/L (0-32); Blood Urea Nitrogen 10 mg/dL (6-20); Carbon Dioxide 21 mmol/L (22-29); Chloride 104 mmol/L (98-107); Creatinine Clr Calc Pharmacy 114.8412; Globulin 2.6 g/dL (1.3-4.6); Glomerular Filtration Rate 81.6 mL/min (90-130); Glucose 145 mg/dL (65-115); Lipase 30 U/L (13-60); Osmolality Calculated 284 mOsm/kg (285-295); Sodium 136 mmol/L (136-145); Total Bilirubin 0.4 mg/dL (0.15-1.2); Total Protein 7.1 g/dL (6.6-8.7)
--- NOTE | 2024-03-05 07:30 | CTR_ITS ---
PROCEDURE INFORMATION: Exam: CT Abdomen And Pelvis Without Contrast Exam date and time: 03/05/2024 7:41 AM Age: 33 years old Clinical indication: Abdominal pain; Generalized; Prior surgery; Surgery date: 6+ months; Surgery type: Hysto, tubal, lt kidney TECHNIQUE: Imaging protocol: Computed tomography of the abdomen and pelvis without contrast. Radiation optimization: All CT scans at this facility use at least one of these dose optimization techniques: automated exposure control; mA and/or kV adjustment per patient size (includes targeted exams where dose is matched to clinical indication); or iterative reconstruction. COMPARISON: MR pelvis wo/w con [id number] 01/21/2024 1:31 PM RADIATION DOSE METRICS: Total DLP (mGy-cm): 931.44 FINDINGS: Lungs: Lung bases are clear as visualized. Liver: Normal. No mass. Gallbladder and biliary ducts: Normal. No calcified stones. No ductal dilation. Pancreas: Normal. No ductal dilation. Spleen: The spleen is slightly enlarged measuring 15 cm in maximal dimension. Adrenal glands: Normal. No mass. Kidneys and ureters: No hydronephrosis is noted involving the kidneys. No renal calculi are identified. The left kidney is somewhat more lateral than normally expected which may be postsurgical. There are multiple surgical clips adjacent to the left kidney. Stomach and bowel: There are air-fluid levels involving nondilated loops of small bowel. This is a nonspecific finding but can be seen with an ileus/enteritis. No dilated loops of bowel are appreciated. No bowel wall thickening is noted. Appendix: No evidence of appendicitis. Intraperitoneal space: There is trace free fluid within the pelvis. No free air is identified. Vasculature: Unremarkable. No abdominal aortic aneurysm. Lymph nodes: Unremarkable. No enlarged lymph nodes. Urinary bladder: Unremarkable as visualized. Reproductive: The uterus is not identified. Bones/joints: Unremarkable. No acute fracture. Soft tissues: There is a small fat filled periumbilical hernia. CT/CT abdomen pelvis wo con [id number] IMPRESSION: 1. Trace free fluid within the pelvis. This may be physiologic. 2. There are air-fluid levels involving nondilated loops of small bowel. This is a nonspecific finding but can be seen with an ileus/enteritis. 3. Mild splenomegaly.
[2024-03-05 07:54] LABS: Bilirubin Urine Negative (Negative); Blood Urine Negative (Negative); Glucose Urine UA Trace (Normal); Ketones Urine Negative (Negative); Leukocyte Esterase Urine 2+ (Negative); Nitrate Urine Negative (Negative); Protein Urine Negative (Negative); Specific Gravity, Urine 1.022 (1.005-1.030); Urine Appearance Clear (CLEAR); Urine Color Yellow (Yellow); Urobilinogen Urine 0.2 mg/dL (Negative); pH Urine 5.5 (5-7)
[2024-03-05 07:56] LABS: Add Urine Microscopic? YES; Bacteria Urine 2+ /hpf; Hyaline Casts Urine 0.81 /lpf; RBC Urine 0-2 /hpf (0-2); WBC Urine >100 /hpf (0-5)
[2024-03-05 08:00] LABS: Add Urine Culture? Yes
[2024-03-05 09:25] VITALS: BP 127/82; PULSE 78; O2SAT 97
== END 2024-03-05 09:26 | disposition home or self-care (01) ==
PROVIDERS: Emergency Provider Family Medicine; PCP Registered Nurse
DX: N30.90 Cystitis, unspecified without hematuria (principal)
CPT/HCPCS: 74176; 80053; 81001; 83690; 85025; 87086; 99284

== ENCOUNTER → 2024-03-17 08:30 | Outpatient (BNVA) | payer BC, SELFPAY | PROVIDERS: PCP Registered Nurse; Visit Provider Registered Nurse | DX: I10 Essential (primary) hypertension (principal); R73.9 Hyperglycemia, unspecified | CPT/HCPCS: 80048; 81000; 83036; 84443; 85025 ==

== ENCOUNTER → 2024-04-08 09:06 | Outpatient (BNVA) | payer BC, SELFPAY | PROVIDERS: PCP Registered Nurse; Visit Provider Obstetrics & Gynecology | DX: R30.0 Dysuria (principal); R39.9 Unspecified symptoms and signs involving the genitourinary system; N39.3 Stress incontinence (female) (male) | CPT/HCPCS: 84315 ==

== ENCOUNTER → 2024-04-20 09:07 | Outpatient (BNVA) | payer BC, SELFPAY | PROVIDERS: PCP Registered Nurse; Visit Provider Registered Nurse | DX: N39.0 Urinary tract infection, site not specified (principal) | CPT/HCPCS: 81000; 87086 ==

== ENCOUNTER 2024-10-03 14:17 | Outpatient (CLI) | payer BC, SELFPAY ==
--- NOTE | 2024-10-03 14:30 | MM_ITS ---
WS: [id number] BILATERAL 3D TOMOSYNTHESIS DIGITAL DIAGNOSTIC MAMMOGRAPHY WITH CAD CLINICAL INFORMATION: N63.10 - Unspecified lump in the right breast, unspecifie... HISTORY: Lumps RIGHT breast COMPARISON: baseline TECHNIQUE: Bilateral CC, MLO, and ML views. FINDINGS: The breasts are composed of heterogeneous fibroglandular density, which can limit the detection of small underlying mass lesions. Dense parenchymal tissue deep to the palpable markers. No suspicious focal mass, asymmetry, calcifications, or architectural distortion. ULTRASOUND BREAST RIGHT TECHNIQUE: Ultrasound right breast focused area of concern. CLINICAL INFORMATION: N63.10 - Unspecified lump in the right breast, unspecifie... FINDINGS: Ultrasound RIGHT breast areas of concern. Dense underlying parenchymal tissue. Incidental tiny cyst measuring 6 mm at the 10 o'clock position 3 cm from the nipple. Recommend annual screening mammography age 40 MM/MM diag BI tomosynthesis [id number] IMPRESSION: DENSITY: The breasts are heterogeneously dense, which may obscure small masses. BI-RADS: 2 - Benign FOLLOW UP: 1 Year Follow-up Recommend annual screening mammography age 40
--- NOTE | 2024-10-03 15:00 | US_ITS ---
WS: [id number] BILATERAL 3D TOMOSYNTHESIS DIGITAL DIAGNOSTIC MAMMOGRAPHY WITH CAD CLINICAL INFORMATION: N63.10 - Unspecified lump in the right breast, unspecifie... HISTORY: Lumps RIGHT breast COMPARISON: baseline TECHNIQUE: Bilateral CC, MLO, and ML views. FINDINGS: The breasts are composed of heterogeneous fibroglandular density, which can limit the detection of small underlying mass lesions. Dense parenchymal tissue deep to the palpable markers. No suspicious focal mass, asymmetry, calcifications, or architectural distortion. ULTRASOUND BREAST RIGHT TECHNIQUE: Ultrasound right breast focused area of concern. CLINICAL INFORMATION: N63.10 - Unspecified lump in the right breast, unspecifie... FINDINGS: Ultrasound RIGHT breast areas of concern. Dense underlying parenchymal tissue. Incidental tiny cyst measuring 6 mm at the 10 o'clock position 3 cm from the nipple. Recommend annual screening mammography age 40 US/US breast RT limited* [id number] IMPRESSION: DENSITY: The breasts are heterogeneously dense, which may obscure small masses. BI-RADS: 2 - Benign FOLLOW UP: 1 Year Follow-up Recommend annual screening mammography age 40
== END 2024-10-03 14:18 | disposition home or self-care (01) ==
LOC: RAD 14:21
PROVIDERS: PCP Registered Nurse; Visit Provider Nurse Practitioner Women's Health
DX: N60.01 Solitary cyst of right breast (principal); R92.333 Mammographic heterogeneous density, bilateral breasts
CPT/HCPCS: 76642; 77062; G0279